=== PATIENT | male | born 1985 | race Two or more races ===

== ENCOUNTER 2022-03-07 04:46 | Inpatient (IN) | payer OTHER ==
[~2022-03-07] VITALS: Ht 172.7 cm; Wt 87.5 kg
[2022-03-07 05:55] LABS: ANION GAP 3 mmol/L (8-16); BASOPHILS % (AUTO) 0.7 % (0.0-2.0); CALCIUM, TOTAL 9.4 mg/dL (8.8-10.5); CARBON DIOXIDE 31 mmol/L (22-29); CHLORIDE 102 mmol/L (98-107); CREATININE 1.12 mg/dL (0.60-1.30); EOSINOPHILS % (AUTO) 0.2 % (1.0-6.0); GLUCOSE,RANDOM 101 mg/dL (70-110); HEMATOCRIT 49.9 % (41-53); HEMOGLOBIN 16.4 g/dL (13.5-17.5); LYMPHOCYTES # (AUTO) 1.4 K/uL (1.0-4.8); MEAN CORPUSCULAR HEMOGLOBIN 29.1 pg (26.0-34.0); MEAN CORPUSCULAR HGB CONC 32.8 G/dL (31.0-37.0); MEAN CORPUSCULAR VOLUME 89 fL (80-100); MONOCYTES # (AUTO) 1.2 K/uL (0.1-1.0); MONOCYTES % (AUTO) 7.1 % (2.0-9.0); NEUTROPHILS # (AUTO) 14.3 K/uL (1.8-7.7); PLATELET COUNT (AUTO) 271 K/uL (150-450); POTASSIUM 4.5 mmol/L (3.5-5.1); RED BLOOD CELL COUNT(AUTO) 5.62 MIL/uL (4.50-5.90); RED CELL DISTRIBUTION WIDTH 14.8 % (11.5-14.5); SODIUM SERUM 136 mmol/L (136-145); UREA NITROGEN, BLOOD 15 mg/dL (7-18)
[2022-03-07 06:00] LABS: PROTHROMBIN TIME 10.9 SEC (9.4-11.6)
[2022-03-07 06:01] LABS: ALANINE AMINOTRANSFERASE 26 U/L (12-78); ALKALINE PHOSPHATASE 56 U/L (46-116); ASPARTATE AMINOTRANSFERASE 12 U/L (15-37); BILIRUBIN,TOTAL 0.4 mg/dL (0.1-1.0); LIPASE 72 U/L (73-393); TOTAL PROTEIN, SERUM 7.9 g/dL (6.4-8.2)
[2022-03-07 06:02] LABS: GLOMERULAR FILTR. RATE CALC > 60 mL/min (>60)
[2022-03-07 06:24] LABS: PLATELET MORPHOLOGY COMMENT LARGE PLTS PRESENT
[2022-03-07] MEDS ORDERED: MAG HYDROX/AL HYDROX/SIMETH 30 ML SUSP UDCUP PO ONE (06:30)
[2022-03-07] MEDS ORDERED: KETOROLAC TROMETHAMINE 15 MG/ML VIAL IVP ONE (06:30)
[2022-03-07] MEDS ORDERED: ONDANSETRON HCL 4 MG/2 ML VIAL IVP ONE (06:30)
[2022-03-07] MEDS ORDERED: KETOROLAC TROMETHAMINE 30 MG/ML VIAL IVP ONE (06:30)
[2022-03-07] MEDS ORDERED: SODIUM CHLORIDE 0.9% 1,000 ML IV ONE (06:30)
[2022-03-07] MEDS ORDERED: FAMOTIDINE 10 MG/ML 2 ML VIAL IVP ONE (06:30)
[2022-03-07 06:52] LABS: COVID AG,FIA SOURCE NASOPHARYNGEAL
[2022-03-07] MEDS ORDERED: SODIUM CHLORIDE 0.9% 100 ML ONE (07:14)
[2022-03-07] MEDS ORDERED: IOHEXOL 350 MG/ML 100 ML VIAL ONE (07:14)
[2022-03-07] MEDS ORDERED: PIPERACILLIN SODIUM/TAZOBACTAM 4.5 GM in DEXTROSE 5%-WATER 100 ML IV ONE (08:45)
[2022-03-07 11:50] VITALS: BP 126/75
[2022-03-07] MEDS ORDERED: ONDANSETRON HCL 4 MG/2 ML VIAL IVP PRN ×2 (13:30→16:00)
[2022-03-07] MEDS ORDERED: 0.9% SODIUM CHLORIDE 10 ML SYRINGE IVP PRN (13:30)
[2022-03-07] MEDS ORDERED: ACETAMINOPHEN 325 MG TABLET PO PRN ×2 (13:30→16:00)
[2022-03-07 16:00] VITALS: BP 114/69
[2022-03-07] MEDS ORDERED: MORPHINE SULFATE 2 MG/ML SYRINGE IVP PRN (16:00)
[2022-03-07] MEDS ORDERED: BISACODYL 10 MG RECTAL RECTAL SUPPOSITORY PR PRN (16:00)
[2022-03-07] MEDS ORDERED: HYDROCODONE/ACETAMINOPHEN 5-325 MG TABLET PO PRN (16:00)
[2022-03-07] MEDS ORDERED: IPRATROPIUM BROMIDE 0.5 MG/2.5 ML NEB SOLUTION NEB PRN (16:00)
[2022-03-07] MEDS ORDERED: MAGNESIUM HYDROXIDE SUSPENSION 30 ML UDCUP PO PRN (16:00)
[2022-03-07] MEDS ORDERED: ALBUTEROL SULFATE 2.5 MG/0.5 ML NEB SOLUTION NEB PRN (16:00)
[2022-03-07] MEDS ORDERED: SODIUM CHLORIDE 0.9% 500 ML IV ONE (16:38)
[2022-03-07] MEDS: PIPERACILLIN/TAZO 3.375 GM/D5W 50 ML IV SCH ×2 (17:24→22:48)
[2022-03-07] MEDS: HEPARIN SODIUM,PORCINE 5,000 UNITS/ML VIAL SQ SCH ×2 (17:25→23:02)
[2022-03-07 20:22] VITALS: BP 106/65
[2022-03-08] MEDS: PIPERACILLIN/TAZO 3.375 GM/D5W 50 ML IV SCH ×4 (04:49→23:17)
[2022-03-08 05:22] VITALS: BP 107/58
[2022-03-08] MEDS: HEPARIN SODIUM,PORCINE 5,000 UNITS/ML VIAL SQ SCH ×3 (08:00→23:55)
[2022-03-08 08:27] VITALS: BP 114/70
[2022-03-08] MEDS ORDERED: ETHYL ALCOHOL 62% ANTISEPTIC NASAL SANITIZER 0.6 ML AMPUL NASAL ONE (09:00)
[2022-03-08] MEDS ORDERED: PANTOPRAZOLE SODIUM 40 MG/VIAL IVP SCH (09:00)
[2022-03-08] MEDS ORDERED: BUPIVACAINE 0.25%/EPI 1:200,000/PF 10 ML VIAL ONE ×2 (09:15→10:11)
[2022-03-08] MEDS ORDERED: SODIUM CL IRRIG SOLN BAG 3,000 ML IRRIG ONE (09:15)
[2022-03-08] MEDS ORDERED: RINGERS SOLUTION,LACTATED 1,000 ML IV SCH (09:30)
[2022-03-08] MEDS ORDERED: HYDROmorphone HCL 2 MG/ML SYRINGE IVP PRN (12:00)
[2022-03-08] MEDS ORDERED: MEPERIDINE-PF 25 MG/ML VIAL IVP PRN (12:00)
[2022-03-08] MEDS ORDERED: FentaNYL CITRATE PF 100 MCG/2 ML VIAL ONE (12:56)
[2022-03-08] MEDS: FentaNYL CITRATE PF 100 MCG/2 ML VIAL IVP PRN ×2 (12:59→13:10)
[2022-03-08] MEDS ORDERED: HYDROmorphone HCL 2 MG/ML SYRINGE IM PRN (13:00)
[2022-03-08] MEDS: ACETAMINOPHEN 500 MG TABLET PO SCH ×2 (13:00→17:59)
[2022-03-08] MEDS ORDERED: HYDROCODONE/ACETAMINOPHEN 5-325 MG TABLET PO PRN (13:00)
[2022-03-08] MEDS ORDERED: HYDROmorphone HCL 2 MG/ML SYRINGE ONE (13:14)
[2022-03-08] MEDS ORDERED: MORPHINE SULFATE 4 MG/ML SYRINGE ONE (13:37)
[2022-03-08] MEDS: MORPHINE SULFATE 4 MG/ML SYRINGE IVP PRN ×2 (13:39→21:29)
[2022-03-08] MEDS: IBUPROFEN 200 MG TABLET PO SCH ×2 (15:48→20:24)
[2022-03-08] MEDS ORDERED: ALBU8HFA IH (16:15)
[2022-03-08] MEDS ORDERED: GABA-1201 PO (16:15)
[2022-03-08] MEDS ORDERED: OMEP20 PO (16:15)
[2022-03-08] MEDS ORDERED: MECL-134 PO (16:15)
[2022-03-08] MEDS ORDERED: LOSA-381 PO (16:15)
[2022-03-08 19:54] VITALS: BP 121/67
[2022-03-08] MEDS: ZOLPIDEM TARTRATE 5 MG TABLET PO PRN (20:24)
[2022-03-08] MEDS: FAMOTIDINE 20 MG TABLET PO SCH (20:25)
[2022-03-08] MEDS: OXYGEN THERAPY IH SCH (20:25)
[2022-03-08] MEDS ORDERED: MECLIZINE HCL 25 MG TABLET PO PRN (21:00)
[2022-03-08] MEDS: GABAPENTIN 400 MG CAPSULE PO SCH (21:29)
[2022-03-08] MEDS: OMEPRAZOLE 20 MG CAPSULE PO SCH (21:29)
[2022-03-08 23:19] LABS: ANION GAP 7 mmol/L (8-16); CALCIUM, TOTAL 9.4 mg/dL (8.8-10.5); CARBON DIOXIDE 30 mmol/L (22-29); CHLORIDE 102 mmol/L (98-107); CREATININE 1.25 mg/dL (0.60-1.30); GLOMERULAR FILTR. RATE CALC > 60 mL/min (>60); GLUCOSE,RANDOM 122 mg/dL (70-110); POTASSIUM 5.1 mmol/L (3.5-5.1); SODIUM SERUM 139 mmol/L (136-145); UREA NITROGEN, BLOOD 10 mg/dL (7-18)
[2022-03-08 23:24] LABS: ALANINE AMINOTRANSFERASE 42 U/L (12-78); ALBUMIN 3.4 g/dL (3.4-5.0); ALKALINE PHOSPHATASE 55 U/L (46-116); ASPARTATE AMINOTRANSFERASE 24 U/L (15-37); BILIRUBIN,TOTAL 0.8 mg/dL (0.1-1.0); TOTAL PROTEIN, SERUM 7.4 g/dL (6.4-8.2)
[2022-03-09] MEDS: ACETAMINOPHEN 500 MG TABLET PO SCH ×3 (02:16→12:38)
[2022-03-09 04:14] VITALS: BP 109/69
[2022-03-09] MEDS: PIPERACILLIN/TAZO 3.375 GM/D5W 50 ML IV SCH ×4 (04:17→23:42)
[2022-03-09] MEDS ORDERED: PROPOFOL 1% 20 ML VIAL IVP ONE (05:29)
[2022-03-09] MEDS ORDERED: MIDAZOLAM HCL 2 MG/2 ML VIAL IVP ONE (05:29)
[2022-03-09] MEDS ORDERED: FentaNYL CITRATE PF 100 MCG/2 ML VIAL IVP ONE (05:29)
[2022-03-09] MEDS ORDERED: 0.9% SODIUM CHLORIDE 10 ML VIAL IVP ONE (05:29)
[2022-03-09] MEDS ORDERED: MORPHINE SULFATE/PF 0.5 MG/ML 10 ML AMP IVP ONE (05:29)
[2022-03-09] MEDS ORDERED: ONDANSETRON HCL 4 MG/2 ML VIAL IVP ONE (05:29)
[2022-03-09] MEDS ORDERED: KETOROLAC TROMETHAMINE 60 MG/2 ML VIAL IM ONE (05:29)
[2022-03-09] MEDS ORDERED: LIDOCAINE/PF 2% 5 ML VIAL IM ONE (05:29)
[2022-03-09] MEDS ORDERED: DEXAMETHASONE SOD PHOS 4 MG/ML VIAL IVP ONE (05:29)
[2022-03-09] MEDS: OMEPRAZOLE 20 MG CAPSULE PO SCH ×4 (06:43→21:46)
[2022-03-09] MEDS: MORPHINE SULFATE 4 MG/ML SYRINGE IVP PRN (06:44)
[2022-03-09 07:53] VITALS: BP 110/73
[2022-03-09] MEDS: GABAPENTIN 400 MG CAPSULE PO SCH ×3 (07:55→21:45)
[2022-03-09] MEDS: LOSARTAN POTASSIUM 25 MG TABLET PO SCH (07:56)
[2022-03-09] MEDS: IBUPROFEN 200 MG TABLET PO SCH (07:56)
[2022-03-09] MEDS: FAMOTIDINE 20 MG TABLET PO SCH ×2 (07:56→21:45)
[2022-03-09] MEDS: HEPARIN SODIUM,PORCINE 5,000 UNITS/ML VIAL SQ SCH ×3 (07:57→23:42)
[2022-03-09 07:59] LABS: BASOPHILS % (AUTO) 0.2 % (0.0-2.0); EOSINOPHILS % (AUTO) 0.1 % (1.0-6.0); HEMATOCRIT 48.4 % (41-53); HEMOGLOBIN 16.2 g/dL (13.5-17.5); LYMPHOCYTES # (AUTO) 1.6 K/uL (1.0-4.8); LYMPHOCYTES % (AUTO) 10.1 % (22.0-44.0); MEAN CORPUSCULAR HEMOGLOBIN 29.4 pg (26.0-34.0); MEAN CORPUSCULAR HGB CONC 33.4 G/dL (31.0-37.0); MEAN CORPUSCULAR VOLUME 88 fL (80-100); MONOCYTES # (AUTO) 1.5 K/uL (0.1-1.0); MONOCYTES % (AUTO) 9.5 % (2.0-9.0); NEUTROPHILS # (AUTO) 12.9 K/uL (1.8-7.7); NEUTROPHILS % (AUTO) 80.1 % (40.0-70.0); PLATELET COUNT (AUTO) 273 K/uL (150-450); RED CELL DISTRIBUTION WIDTH 14.7 % (11.5-14.5)
[2022-03-09] MEDS: OXYGEN THERAPY IH SCH ×2 (08:00→20:00)
[2022-03-09 08:08] LABS: PLATELET MORPHOLOGY COMMENT LARGE PLTS PRESENT
[2022-03-09 15:47] VITALS: BP 110/52
[2022-03-09] MEDS ORDERED: SODIUM CHLORIDE 0.9% 250 ML IV ONE (16:34)
[2022-03-09] MEDS ORDERED: ACETAMINOPHEN 500 MG TABLET PO PRN (16:45)
[2022-03-09] MEDS ORDERED: IBUPROFEN 800 MG TABLET PO PRN (16:45)
[2022-03-09 19:55] VITALS: BP 105/48
[2022-03-09 19:58] VITALS: BP 97/56
[2022-03-09] MEDS: ZOLPIDEM TARTRATE 5 MG TABLET PO PRN (21:45)
[2022-03-10 04:45] VITALS: BP 104/57
[2022-03-10] MEDS: PIPERACILLIN/TAZO 3.375 GM/D5W 50 ML IV SCH ×2 (05:04→10:11)
[2022-03-10 07:00] LABS: BASOPHILS % (AUTO) 0.9 % (0.0-2.0); EOSINOPHILS % (AUTO) 1.6 % (1.0-6.0); HEMATOCRIT 45.4 % (41-53); HEMOGLOBIN 15.2 g/dL (13.5-17.5); LYMPHOCYTES # (AUTO) 2.9 K/uL (1.0-4.8); MEAN CORPUSCULAR HEMOGLOBIN 29.3 pg (26.0-34.0); MEAN CORPUSCULAR HGB CONC 33.4 G/dL (31.0-37.0); MEAN CORPUSCULAR VOLUME 88 fL (80-100); MONOCYTES % (AUTO) 11.4 % (2.0-9.0); NEUTROPHILS # (AUTO) 4.9 K/uL (1.8-7.7); NEUTROPHILS % (AUTO) 54.1 % (40.0-70.0); PLATELET COUNT (AUTO) 246 K/uL (150-450); RED BLOOD CELL COUNT(AUTO) 5.18 MIL/uL (4.50-5.90); RED CELL DISTRIBUTION WIDTH 14.7 % (11.5-14.5)
[2022-03-10] MEDS: OMEPRAZOLE 20 MG CAPSULE PO SCH ×2 (07:04→10:13)
[2022-03-10] MEDS: OXYGEN THERAPY IH SCH (08:00)
[2022-03-10 08:10] VITALS: BP 105/60
[2022-03-10] MEDS: FAMOTIDINE 20 MG TABLET PO SCH (08:21)
[2022-03-10] MEDS: GABAPENTIN 400 MG CAPSULE PO SCH (08:22)
[2022-03-10] MEDS: LOSARTAN POTASSIUM 25 MG TABLET PO SCH (08:22)
[2022-03-10] MEDS: HEPARIN SODIUM,PORCINE 5,000 UNITS/ML VIAL SQ SCH (08:22)
[2022-03-10] MEDS ORDERED: ACET-2247 PO (11:14)
[2022-03-10] MEDS ORDERED: IBUP-2071 PO (11:15)
[2022-03-10] MEDS ORDERED: MECL-134 PO (11:15)
[2022-03-10] MEDS ORDERED: AMOX1TAB16 PO (11:16)
== END 2022-03-10 15:02 | DRG 418 ==
LOC: EMS 04:47 → 6S 09:58
PROVIDERS: ADMIT Hospitalist; ATTEND Hospitalist
PROC: 0FT44ZZ Resection of Gallbladder, Percutaneous Endoscopic Approach (ICD-10-PCS; principal; 2022-03-08 11:50)
DX: K80.13 Calculus of gallbladder with acute and chronic cholecystitis with obstruction (principal); R65.10 Systemic inflammatory response syndrome (SIRS) of non-infectious origin without acute organ dysfunction; Z20.822 Contact with and (suspected) exposure to COVID-19; G25.81 Restless legs syndrome; I10 Essential (primary) hypertension; J45.909 Unspecified asthma, uncomplicated; Z72.0 Tobacco use; Z79.899 Other long term (current) drug therapy
CPT/HCPCS: 74177; 80053; 83690; 85025; 85610; 85730; 87081; 93005; 99285; C9113; J1100; J1170; J1644; J1885; J2250; J2270; J2274; J2405; J2543; J2704; J3010; J3490; J7040; J7050; J7060; J7120; Q9967